=== PATIENT | male | born 1970 | race American Indian/Alaskan Native ===

== ENCOUNTER 2021-11-06 08:54 | Outpatient (CLI) | payer OTHER ==
--- NOTE | 2021-11-06 09:33 | XRay Report ---
Lumbar spine 3 views INDICATION: Low back pain. IMPRESSION: Mild multilevel discogenic and facet arthropathy with mild bilateral neural foraminal kyaw rowing at L4-L5 and L5-S1. Signer Name: Osvaldo Goyal MD Signed: 11/06/2021 9:29 AM Workstation Name: [id number]
== END 2021-11-06 08:55 | disposition home or self-care (01) ==
LOC: XRAY 08:54
PROVIDERS: ATTEND Internal Medicine
DX: M47.817 Spondylosis without myelopathy or radiculopathy, lumbosacral region (principal); M48.07 Spinal stenosis, lumbosacral region
CPT/HCPCS: 72100